=== PATIENT | female | born 1970 | race American Indian/Alaskan Native ===

== ENCOUNTER 2021-09-02 12:09 | Outpatient (CLI) | payer BC ==
--- NOTE | 2021-09-02 13:24 | XRay Report ---
LEFT KNEE 3 VIEWS INDICATION: M25.562 LEFT KNEE PAIN. COMPARISON: None. IMPRESSION: No acute osseous or soft tissue abnormality. 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 Trace joint effusion is identified . LEFT ANKLE 3 VIEWS INDICATION: Left ankle pain. COMPARISON: None. IMPRESSION: There is moderate to severe diffuse soft tissue swelling or edema. No acute osseous abn ormality is appreciated. There are mild osteoarthritic changes at the tibiotalar joint. Signer Name: Paulino Bell Jr, MD Signed: 09/02/2021 1:20 PM Workstation Name: [id number]
== END 2021-09-02 12:10 | disposition home or self-care (01) ==
LOC: XRAY 12:09
PROVIDERS: ATTEND Family Medicine Adult Medicine
DX: M17.12 Unilateral primary osteoarthritis, left knee (principal); M25.462 Effusion, left knee; M19.072 Primary osteoarthritis, left ankle and foot